=== PATIENT | male | born 1995 | race African-American/Black ===

== ENCOUNTER 2018-11-06 02:02 | Emergency (ER) | payer SELFPAY ==
[~2018-11-06] VITALS: Ht 188 cm; Wt 113.0 kg
[2018-11-06 05:08] VITALS: BP 123/72
== END 2018-11-06 05:09 | disposition home or self-care (01) ==
LOC: ER 02:02
DX: N62 Hypertrophy of breast (principal); F17.210 Nicotine dependence, cigarettes, uncomplicated
CPT/HCPCS: 71045; 93005; 99283; Z7610